=== PATIENT | female | born 1945 | race Caucasian/White ===

== ENCOUNTER 2019-01-05 14:05 | Inpatient (IN) | payer MEDICARE, OTHER ==
[~2019-01-05] VITALS: Ht 165.1 cm; Wt 54.5 kg
[2019-01-05 15:15] VITALS: BP 168/76
[2019-01-05] MEDS: IPRATRPIUM/ALBUTEROL 0.5/2.5MG 3 ML NEBU. NEB SCH ×2 (16:00→18:22)
[2019-01-05] MEDS ORDERED: ALBUTEROL SULFATE 2.5 MG/3 ML NEBU. NEB PRN (16:00)
[2019-01-05 16:19] LABS: BASE EXCESS ABG 7 mmol/L (-3-3); HCO3 ABG 34 mmol/L (21-28); PCO2 ABG 56 mmHg (35-46); PO2 ABG 72 mmHg (65-108); SAT O2 ABG 93 % (92-99)
[2019-01-05 16:22] LABS: FIO2 ABG 28% NC
[2019-01-05] MEDS ORDERED: hydrALAZINE 25 MG TABLET PO ONE (17:15)
[2019-01-05 19:10] VITALS: BP 145/73
[2019-01-05] MEDS ORDERED: hydrALAZINE 25 MG TABLET PO SCH (21:00)
[2019-01-05] MEDS: DOXYCYCLINE HYCLATE 100 MG TABLET PO SCH (21:53)
[2019-01-05] MEDS: ATORVASTATIN CALCIUM 40 MG TABLET. PO SCH (21:53)
[2019-01-05] MEDS: LACTOBACILLUS RHAMNOSUS GG 1 CAPSULE. PO SCH (21:53)
[2019-01-05] MEDS: methylPREDNISolone SOD SUCC PF 125 MG/2 ML VIAL. IV SCH (21:54)
[2019-01-05] MEDS: MONTELUKAST SODIUM 10 MG TABLET. PO SCH (21:54)
[2019-01-05] MEDS: hydrALAZINE 25 MG TABLET PO SCH (21:54)
[2019-01-05 22:59] VITALS: BP 134/68
[2019-01-06 03:05] VITALS: BP 138/79
[2019-01-06 03:58] LABS: BASO % 0 % (0-3); EOS % 0 % (0-3); HEMATOCRIT 41.1 % (36.0-47.0); HEMOGLOBIN 13.4 g/dL (12.0-15.5); LYMPH # 0.4 x10^3/uL (1.0-4.8); LYMPH % 2 % (24-48); MEAN CORPUSCULAR HEMOGLOBIN 29 pg (25-35); MEAN CORPUSCULAR HGB CONC 33 g/dL (31-37); MEAN CORPUSCULAR VOLUME 88 fL (79-100); MONO # 0.5 x10^3/uL (0.0-1.1); MONO % 3 % (0-9); NEUT # 17.3 x10^3uL (1.8-7.7); NEUT % 95 % (31-73); PLATELET COUNT 291 x10^3/uL (140-400); RED BLOOD COUNT 4.69 x10^6/uL (3.50-5.40); RED CELL DISTRIBUTION WIDTH 13.3 % (11.5-14.5); WHITE BLOOD COUNT 18.2 x10^3/uL (4.0-11.0)
[2019-01-06 06:29] LABS: ALBUMIN 3.5 g/dL (3.4-5.0); ALBUMIN/GLOBULIN RATIO 1.1 (1.0-1.7); CALCIUM 8.8 mg/dL (8.5-10.1); CREATININE 0.7 mg/dL (0.6-1.0); GFR 81.8; POTASSIUM 4.7 mmol/L (3.5-5.1); TOTAL BILIRUBIN 0.3 mg/dL (0.2-1.0); TOTAL PROTEIN 6.8 g/dL (6.4-8.2)
[2019-01-06] MEDS: methylPREDNISolone SOD SUCC PF 125 MG/2 ML VIAL. IV SCH ×3 (06:59→21:18)
[2019-01-06] MEDS: LEVOTHYROXINE 50 MCG TABLET PO SCH (06:59)
[2019-01-06 07:00] VITALS: BP 154/72
[2019-01-06 07:51] LABS: % BANDS 1 % (0-9); % LYMPHS 4 % (24-48); % MONOS 1 % (0-10); % SEGS 94 % (35-66); PLT ESTIMATE ADEQUATE (ADEQUATE)
[2019-01-06] MEDS: IPRATRPIUM/ALBUTEROL 0.5/2.5MG 3 ML NEBU. NEB SCH ×4 (07:52→20:21)
[2019-01-06] MEDS: DOXYCYCLINE HYCLATE 100 MG TABLET PO SCH ×2 (08:43→21:17)
[2019-01-06] MEDS: LACTOBACILLUS RHAMNOSUS GG 1 CAPSULE. PO SCH ×2 (08:43→21:17)
[2019-01-06] MEDS: MULTIVITAMIN I-VITE TABLET. PO SCH (08:43)
[2019-01-06] MEDS: CHOLECALCIFEROL (VITAMIN D3) 1,000 UNIT TABLET PO SCH (08:43)
[2019-01-06] MEDS: MULTIVITAMIN with MINERAL TABLET. PO SCH (08:43)
[2019-01-06] MEDS: hydroCHLOROthiazide 12.5 MG CAPSULE PO SCH (08:44)
[2019-01-06] MEDS: ASPIRIN ENTERIC COATED 81 MG TABLET.DR. PO SCH (08:44)
[2019-01-06] MEDS: LOSARTAN POTASSIUM 50 MG TABLET. PO SCH (08:44)
[2019-01-06] MEDS: hydrALAZINE 25 MG TABLET PO SCH ×3 (08:44→21:17)
--- NOTE | 2019-01-06 09:33 | HP ---
ADMIT DATE: 01/06/2019 INCOMPLETE DICTATION HISTORY OF PRESENT ILLNESS: The patient is a 73-year-old female patient, who was admitted originally to [facility] on 01/02/2019 with increasing shortness of breath that has been going on for the last 2 days prior to admission. She also has some upper abdominal pain, generalized weakness and increased shortness of breath on exertion. It is stated that the patient is so weak that she is unable to walk. She is known to have COPD and she is normally on 2 to 2.5 liters of oxygen per minute. She increased her oxygen to 3 liters a minute; however, she continued to have shortness of breath and inability to walk. She denied any chest pain. Denied any chills, rigors or fever. She was evaluated in the Emergency Room and her lab work was unremarkable. Her chest x-ray showed emphysematous changes, no focal airspace disease, normal pulmonary vasculature. No pleural effusion or pneumothorax. Cardiomediastinal silhouette is unchanged in appearance and unchanged atherosclerotic and slightly tortuous thoracic aorta. She normally follows with Dr. Dooley at [facility], but however, she expressed her desire to switch to the line and frame poler at [facility] to be followed here. In any case, the patient was started on steroids and bronchodilators and we did actually blood gases on the next day of admission. It showed that she was acidotic. Her blood gas showed a pH of 7.2, pCO2 was 81 and was also low and she was started on BiPAP machine. We did actually continue her on IV Solu-Medrol, oral doxycycline together with bronchodilators and all her other medications. Her troponin was elevated and we did consult the line and frame poler and she was diagnosed with non-ST segment elevation myocardial infarction that was felt to be demand mediated, as the patient was angina free. Her echocardiogram showed that she has normal left ventricular function and wall motion and there was a plan for her to have a nuclear stress test as an outpatient. The patient continued to desaturate with minimal exertion and we did actually even a CT angio of the chest, which showed no evidence of pulmonary embolism. Her family insisted for her to be transferred to [facility] to be evaluated by the line and frame poler. PAST MEDICAL HISTORY: Significant for chronic obstructive pulmonary disease; hypertension; hypothyroidism and chronic hypoxic respiratory failure, requiring 2 to 2.5 liters oxygen. She is known to have senile macular degeneration. PAST SURGICAL HISTORY: Significant for total abdominal hysterectomy and bilateral salpingo-oophorectomy, cholecystectomy, bilateral cataract extraction and colonoscopy. ALLERGIES: She has no known drug allergies. MEDICATIONS: She was transferred to continue on the following medications: Hydrochlorothiazide 12.5 mg once a day, multivitamin tablet once a day, losartan potassium 100 mg once a day, vitamin D 1000 international units once a day, aspirin 81 mg once a day, levothyroxine 50 mcg daily and Solu-Medrol 62.5 mg IV q. 8 hourly, hydralazine 25 mg 3 times a day, Mucinex 600 mg twice a day, Singulair 10 mg at bedtime, Lactobacillus rhamnosus 1 capsule twice a day, doxycycline 100 mg twice a day and atorvastatin calcium 40 mg at bedtime. She is also on DuoNebs 4 times a day and albuterol sulfate every 2 hours. FAMILY HISTORY: She has 3 brothers; one had committed suicide at the age of 22, the other 2 brothers are alive and healthy. She has 4 sisters. One of them had received a liver transplant for end-stage liver disease. The other two sisters are healthy. Her father at the age of 71 because of myocardial infarction. Her mother is still alive at the age of 92. SOCIAL HISTORY: She is , lives alone. She has 2 daughters and one son. She quit smoking about 2 years ago. She smoked a pack a day for 25-30 years. She has not had any alcohol for the last 2-3 years. She worked at [employer]. REVIEW OF SYSTEMS: As per history of present illness. PHYSICAL EXAMINATION: GENERAL: On examining her this morning, she was sitting comfortably at the edge of the bed, eating her breakfast, in no apparent distress. There was no pallor, jaundice, cyanosis or thyromegaly. No jugular venous distention. No lower limb edema. VITAL SIGNS: Her heart rate was 91, blood pressure was 138/79, temperature was 98.8, respiratory rate was 22 and oxygen saturation was 97% on 3 liters of oxygen by nasal cannula. HEENT: Examination of the head, eyes, ears, nose and throat showed she was normocephalic, atraumatic. NECK: Supple. HEART: Showed normal first and second heart sounds. No gallop, rub or murmur. CHEST: Showed central trachea, equally reduced expansion, reduced air entry, vesicular breath sounds. I could not really appreciate any crepitation or rhonchi. ABDOMEN: Slightly distended, soft and nontender. NEUROLOGIC: She was awake, alert and responding appropriately. All cranial nerves intact. She moved extremities without difficulty. She ambulated without assistance or assistive devices. However, she desaturates with minimal exertion as her oxygen saturation drops below 85. LABORATORY DATA: Her lab work this morning showed a white cell count of 18,200, hemoglobin 13, hematocrit 41, MCV 88 and a platelet count of 291,000. Her serum sodium was 139, potassium 4.7, chloride 100, bicarbonate 34, anion gap of 5, BUN 28, creatinine 0.7, estimated GFR was 82 mL per minute, her glucose was 140 and calcium was 8.8. Total bilirubin, AST, ALT and alkaline phosphatase were normal. Total protein was 6.8. Albumin 3.5. Her blood gases on arrival yesterday showed a pH of 7.4, pCO2 of 56, pO2 of 72, bicarbonate 34 and oxygen saturation was 93% on FiO2 of 28%. SUMMARY: In summary, this is a 73-year-old female patient who was transferred from [facility] where she was admitted with [id number] hypoxic hypercapnic respiratory failure, chronic obstructive pulmonary disease, non-ST segment elevation myocardial infarction, hypertension and hypothyroidism. The patient was already seen by the equal employment opportunity officer and there, she was diagnosed with non-ST segment elevation myocardial infarction, mostly demand paced. An echocardiogram was done, which showed that she has normal left ventricular systolic function and arrangement has been made for her to have a nuclear stress test as an outpatient. We will consult the line and frame poler as the patient continued to desaturate with minimal exertion. Meanwhile, we will continue with all current plan of management, including Solu-Medrol, bronchodilators, Singulair and Mucinex. DICTATION ENDS HERE. SARANYA BURRELL MD DR: KM/daniela JOB#: [id number] / [id number]
--- NOTE | 2019-01-06 10:38 | PDOC ---
Provider Note Provider Note [id number] acute on chronic resp fail ae copd acute bronchitis see orders MATIAS KING MD Jan 06, 2019 10:38
[2019-01-06] MEDS ORDERED: VITA1CAP11 PO (10:44)
[2019-01-06] MEDS ORDERED: LOSA1TAB25 PO (10:44)
[2019-01-06] MEDS ORDERED: MULT1TAB52 PO (10:44)
[2019-01-06] MEDS ORDERED: CHOL2000 PO (10:44)
[2019-01-06] MEDS ORDERED: LEVO50TA5 PO (10:44)
[2019-01-06] MEDS ORDERED: ENOXAPARIN 30 MG/0.3 ML SYRINGE. SQ SCH (10:45)
[2019-01-06 11:00] VITALS: BP 160/78
[2019-01-06] MEDS: PANTOPRAZOLE 40 MG TABLET.DR. PO SCH (11:13)
[2019-01-06] MEDS: BUDESONIDE 0.5 MG/2 ML NEBU. NEB SCH ×2 (11:51→20:22)
--- NOTE | 2019-01-06 11:51 | CONS ---
DATE OF CONSULTATION: 01/06/2019 REASON FOR CONSULTATION: I was asked to see this 73-year-old lady for acute on chronic respiratory failure, acute exacerbation of COPD. HISTORY OF PRESENT ILLNESS: She has history of [id number] smoking, stopped smoking in 2009. She has not felt well since October of this year. She had multiple courses of antibiotic and steroids. She did see her die cutter diamond, Dr. Hoff. She was admitted to [facility] on 03/2019, transferred to [place] per patient request. She states that she was worse 2-3 days before her admission. She had more shortness of breath and cough, was not able to cough up any sputum. She is feeling better on the day of admission at [facility], but is not the best. Her oxygen saturation drops easily, and she has shortness of breath with any activity. She has cough, but is not able to cough up sputum. She has gastroesophageal reflux symptoms. She denied chest pain. PAST MEDICAL HISTORY: COPD, chronic respiratory failure, hypothyroidism, macular degeneration, status post hysterectomy, bilateral salpingo-oophorectomy, cholecystectomy, bilateral cataract extraction. ALLERGIES: No known drug allergies. MEDICATIONS: Currently, she is on hydrochlorothiazide, Cozaar, vitamin D, aspirin, levothyroxine, Solu-Medrol 62.5 mg every 8 hours, hydralazine, Mucinex, Singulair, DuoNeb, Lipitor, doxycycline. SOCIAL HISTORY: History of 24-aqte-zqas smoking, quit smoking in 2009. FAMILY HISTORY: Hypertension. REVIEW OF SYSTEMS: As mentioned as above, other systems otherwise negative. PHYSICAL EXAMINATION: GENERAL: This is a frail lady. VITAL SIGNS: O2 saturation on 3 liters of oxygen is 95%, respiratory rate 20, heart rate 85, blood pressure 150/72, temperature 98.1. HEENT: Normocephalic, atraumatic. Pupils equal, round, reactive to light. Throat is clear. Nose is clear. NECK: There is no JVD, lymphadenopathy or thyromegaly. CARDIOVASCULAR: Regular rate and rhythm. Distant heart sounds. CHEST: Inspection is normal. LUNGS: There are diminished breath sounds, a few end expiratory wheezing with exhalation and dullness at the bases. ABDOMEN: Soft. Bowel sounds are good. There is no mass. EXTREMITIES: There is no edema. LYMPHATICS: There is no lymphadenopathy. SKIN: Warm. NEUROLOGIC: Alert and oriented. LABORATORY DATA: I reviewed the following lab data: Chest x-ray shows COPD changes, no infiltrate. The CT done at [facility] did not show pulmonary embolism or infiltrate. WBC 18.2, hemoglobin 13.4, platelet 291. Sodium 139, potassium 4.7, glucose 140, BUN 28, creatinine 0.7. ABG: PH 7.4, pCO2 of 56, pO2 of 72 on 3 liters of oxygen. IMPRESSION: 1. Acute on chronic respiratory failure, multifactorial in etiology including acute exacerbation of chronic obstructive pulmonary disease, acute bronchitis, non-ST elevation myocardial infarction and demand mediated, no pulmonary embolism versus others. 2. Acute exacerbation of chronic obstructive pulmonary disease. 3. Acute bronchitis. 4. Ex-smoker. 5. Hypertension. 6. Hypothyroidism. 7. Gastroesophageal reflux disease. PLAN AND RECOMMENDATIONS: 1. Titrate FiO2 to keep O2 saturation 92%. 2. Continue bronchodilator. 3. Add inhaled corticosteroid. 4. Continue steroid. Monitor blood sugar while she is on steroid. 5. The patient was started on Trilogy. She was not able to tolerate last night. I will start her on BiPAP 10/6, rate of 10, to use p.r.n. during day continuously at night. The importance of use discussed. We need to ask the company that provided the Trilogy to change this setting. 6. Continue antibiotic. 7. Start Lovenox for DVT prophylaxis. 8. Start Protonix for stress ulcer prophylaxis and gastroesophageal reflux disease. 9. Consult Physical Therapy. 10. Echocardiogram if not done. 11. The findings and recommendations were discussed with the patient and RN. I have answered all of the patient's questions. She understood and agreed to proceed with the plan. I have answered all of her questions. Thank you very much for allowing me to participate in care of this very nice lady. MATIAS KING M.D. : PHAM/daniela JOB#: [id number] / [id number]
--- NOTE | 2019-01-06 13:12 | NUR ---
SS following for discharge planning. SS reviewed pt chart. Pt is from home and is currently requiring oxygen. No discharge needs noted at this time. SS will continue to follow for discharge planning.
--- NOTE | 2019-01-06 14:21 | RAD ---
CHEST AP ONLY Clinical indications: INCREASED SHORTNESS OF BREATH X TODAY COMPARISON: None available. Findings: Granuloma of the right midlung zone is seen. No acute lung infiltrate or pleural effusion or pulmonary edema or lung mass or pneumothorax is seen. The heart size, pulmonary vasculature, mediastinum and both luna are unremarkable. Impression: No acute radiographic abnormality is seen. Electronically signed by: Moose Warner MD (01/06/2019 2:18 PM) [place] [id number]
[2019-01-06 15:00] VITALS: BP 158/73
[2019-01-06 19:55] VITALS: BP 142/80
[2019-01-06] MEDS: MONTELUKAST SODIUM 10 MG TABLET. PO SCH (21:17)
[2019-01-06] MEDS: ATORVASTATIN CALCIUM 40 MG TABLET. PO SCH (21:17)
[2019-01-06 22:53] VITALS: BP 155/78
[2019-01-07 02:07] VITALS: BP 143/69
[2019-01-07] MEDS: LEVOTHYROXINE 50 MCG TABLET PO SCH (06:35)
[2019-01-07] MEDS: methylPREDNISolone SOD SUCC PF 125 MG/2 ML VIAL. IV SCH (06:35)
[2019-01-07 07:00] VITALS: BP 183/97
--- NOTE | 2019-01-07 07:05 | NUR ---
Pt wore bipap from 2300 to 0400.
[2019-01-07] MEDS: IPRATRPIUM/ALBUTEROL 0.5/2.5MG 3 ML NEBU. NEB SCH ×4 (07:41→20:51)
[2019-01-07] MEDS: BUDESONIDE 0.5 MG/2 ML NEBU. NEB SCH ×2 (07:41→20:52)
[2019-01-07] MEDS: DOXYCYCLINE HYCLATE 100 MG TABLET PO SCH ×2 (08:14→20:17)
[2019-01-07] MEDS: ASPIRIN ENTERIC COATED 81 MG TABLET.DR. PO SCH (08:14)
[2019-01-07] MEDS: LACTOBACILLUS RHAMNOSUS GG 1 CAPSULE. PO SCH ×2 (08:15→20:17)
[2019-01-07] MEDS: hydroCHLOROthiazide 12.5 MG CAPSULE PO SCH (08:15)
[2019-01-07] MEDS: MULTIVITAMIN with MINERAL TABLET. PO SCH (08:15)
[2019-01-07] MEDS: PANTOPRAZOLE 40 MG TABLET.DR. PO SCH (08:16)
[2019-01-07] MEDS: LOSARTAN POTASSIUM 50 MG TABLET. PO SCH (08:17)
[2019-01-07] MEDS: hydrALAZINE 25 MG TABLET PO SCH (08:17)
[2019-01-07] MEDS: ENOXAPARIN 40 MG/0.4 ML SYRINGE. SQ SCH (08:18)
[2019-01-07] MEDS: CHOLECALCIFEROL (VITAMIN D3) 1,000 UNIT TABLET PO SCH (08:22)
--- NOTE | 2019-01-07 08:44 | PDOC ---
PULMONARY PROGRESS NOTES Subjective has sob, cough better, is weak, slept better w bipap Vitals Vital Signs Date Time Temp Pulse Resp B/P (MAP) Pulse Ox O2 Delivery O2 Flow Rate FiO2 01/07/19 08:17 96 172/79 01/07/19 07:43 90 Nasal Cannula 4.0 01/07/19 07:00 98.0 20 98.0 ROS: No Nausea, No Chest Pain General: Alert, No acute distress HEENT: Other (nc at perrl nose throat clear) Lungs: Other (deminished bs) Cardiovascular: S1, S2 Abdomen: Soft Neuro Exam: Alert Extremities: No Edema Skin: Warm Labs Laboratory Tests Test 01/05/19 15:59 01/06/19 03:45 O2 Saturation 93 % (92-99) Arterial Blood pH 7.40 (7.35-7.45) Arterial Blood pCO2 at Patient Temp 56 mmHg (35-46) Arterial Blood pO2 at Patient Temp 72 mmHg (65-108) Arterial Blood HCO3 34 mmol/L (21-28) Arterial Blood Base Excess 7 mmol/L (-3-3) FiO2 28% nc White Blood Count 18.2 x10^3/uL (4.0-11.0) Red Blood Count 4.69 x10^6/uL (3.50-5.40) Hemoglobin 13.4 g/dL (12.0-15.5) Hematocrit 41.1 % (36.0-47.0) Mean Corpuscular Volume 88 fL (79-100) Mean Corpuscular Hemoglobin 29 pg (25-35) Mean Corpuscular Hemoglobin Concent 33 g/dL (31-37) Red Cell Distribution Width 13.3 % (11.5-14.5) Platelet Count 291 x10^3/uL (140-400) Neutrophils (%) (Auto) 95 % (31-73) Lymphocytes (%) (Auto) 2 % (24-48) Monocytes (%) (Auto) 3 % (0-9) Eosinophils (%) (Auto) 0 % (0-3) Basophils (%) (Auto) 0 % (0-3) Neutrophils # (Auto) 17.3 x10^3uL (1.8-7.7) Lymphocytes # (Auto) 0.4 x10^3/uL (1.0-4.8) Monocytes # (Auto) 0.5 x10^3/uL (0.0-1.1) Eosinophils # (Auto) 0.0 x10^3/uL (0.0-0.7) Basophils # (Auto) 0.0 x10^3/uL (0.0-0.2) Segmented Neutrophils % 94 % (35-66) Band Neutrophils % 1 % (0-9) Lymphocytes % 4 % (24-48) Monocytes % 1 % (0-10) Platelet Estimate Adequate (ADEQUATE) Sodium Level 139 mmol/L (136-145) Potassium Level 4.7 mmol/L (3.5-5.1) Chloride Level 100 mmol/L (98-107) Carbon Dioxide Level 34 mmol/L (21-32) Anion Gap 5 (6-14) Blood Urea Nitrogen 28 mg/dL (7-20) Creatinine 0.7 mg/dL (0.6-1.0) Estimated GFR (Cockcroft-Gault) 81.8 BUN/Creatinine Ratio 40 (6-20) Glucose Level 140 mg/dL (70-99) Calcium Level 8.8 mg/dL (8.5-10.1) Total Bilirubin 0.3 mg/dL (0.2-1.0) Aspartate Amino Transf (AST/SGOT) 14 U/L (15-37) Alanine Aminotransferase (ALT/SGPT) 17 U/L (14-59) Alkaline Phosphatase 83 U/L (46-116) Total Protein 6.8 g/dL (6.4-8.2) Albumin 3.5 g/dL (3.4-5.0) Albumin/Globulin Ratio 1.1 (1.0-1.7) Medications Active Scripts Medications Dose Route/Sig Max Daily Dose Days Date Category Prevent Softgels (Vitamin A/Vit C/Vit E/Selenium) 1 Each Capsule 1 Cap PO DAILY 01/06/19 Reported Multivitamins (Multivitamin) 1 Each Tablet 1 Tab PO DAILY 01/06/19 Reported Losartan-Hctz 100-12.5 Mg Tab (Losartan/Hydrochlorothiazide) 1 Each Tablet 1 Tab PO DAILY 01/06/19 Reported Levothyroxine Sodium 50 Mcg Tablet 1 Tab PO DAILY 01/06/19 Reported Vitamin D (Cholecalciferol (Vitamin D3)) 2,000 Unit Capsule 1 Cap PO DAILY 01/06/19 Reported Impression . IMPRESSION: 1. Acute on chronic respiratory failure, multifactorial in etiology including acute exacerbation of chronic obstructive pulmonary disease, acute bronchitis, non-ST elevation myocardial infarction and demand mediated, no pulmonary embolism versus others. 2. Acute exacerbation of chronic obstructive pulmonary disease. 3. Acute bronchitis. 4. Ex-smoker. 5. Hypertension. 6. Hypothyroidism. 7. Gastroesophageal reflux disease. Plan . PLAN AND RECOMMENDATIONS: 1. Titrate FiO2 to keep O2 saturation 92%. 2. Continue bronchodilator. 3. inhaled corticosteroid. 4. change solumedrol to 40 q 8 hrs. Monitor blood sugar while she is on steroid. 5. Trilogy. She was not able to tolerate triology. but tolerated BiPAP 10/6, rate of 10, to use p.r.n. during day continuously at night. The importance of use discussed. her daughter took the machine home. trilogy setting need to be changed 6. Continue antibiotic. 7. Lovenox for DVT prophylaxis. 8. Protonix for stress ulcer prophylaxis and gastroesophageal reflux disease. 9. Consult Physical Therapy. 10. Echocardiogram if not done. 11. discussed w pt and MATIAS Bell MD Jan 07, 2019 08:44
[2019-01-07] MEDS: MULTIVITAMIN I-VITE TABLET. PO SCH (10:11)
[2019-01-07 11:00] VITALS: BP 165/78
[2019-01-07] MEDS ORDERED: hydroCHLOROthiazide 12.5 MG CAPSULE PO ONE (11:00)
[2019-01-07] MEDS: methylPREDNISolone SOD SUCC PF 40 MG/ML VIAL. IV SCH ×2 (13:38→22:45)
[2019-01-07 14:57] VITALS: BP 145/77
--- NOTE | 2019-01-07 16:07 | NUR ---
SS received notification that a BIPAP machine was ordered for pt at [place] and was delivered to [place]. Pt reported that her daughter took the BIPAP home. Pt reporting needing teaching on BIPAP. The BIPAP was ordered through [employer], ; fax [phone]. Mckenzie from [employer], cell [phone], reported that when pt is ready to discharge to home to call them and she would arrange a teach with pt at her home. Pt's RN notified.
[2019-01-07 19:44] VITALS: BP 152/70
[2019-01-07] MEDS: ATORVASTATIN CALCIUM 40 MG TABLET. PO SCH (20:17)
[2019-01-07] MEDS: MONTELUKAST SODIUM 10 MG TABLET. PO SCH (20:17)
[2019-01-07 23:00] VITALS: BP 123/63
[2019-01-08 03:05] VITALS: BP 145/72
[2019-01-08] MEDS: BUDESONIDE 0.5 MG/2 ML NEBU. NEB SCH ×2 (06:33→20:38)
[2019-01-08] MEDS: IPRATRPIUM/ALBUTEROL 0.5/2.5MG 3 ML NEBU. NEB SCH ×4 (06:33→20:38)
[2019-01-08] MEDS: LEVOTHYROXINE 50 MCG TABLET PO SCH (06:41)
[2019-01-08] MEDS: methylPREDNISolone SOD SUCC PF 40 MG/ML VIAL. IV SCH ×2 (06:41→21:10)
[2019-01-08 07:55] VITALS: BP 142/68
[2019-01-08] MEDS: DOXYCYCLINE HYCLATE 100 MG TABLET PO SCH ×2 (08:28→21:08)
[2019-01-08] MEDS: PANTOPRAZOLE 40 MG TABLET.DR. PO SCH (08:29)
[2019-01-08] MEDS: hydroCHLOROthiazide 25 MG TABLET PO SCH (08:29)
[2019-01-08] MEDS: CHOLECALCIFEROL (VITAMIN D3) 1,000 UNIT TABLET PO SCH (08:29)
[2019-01-08] MEDS: ASPIRIN ENTERIC COATED 81 MG TABLET.DR. PO SCH (08:29)
[2019-01-08] MEDS: LOSARTAN POTASSIUM 50 MG TABLET. PO SCH (08:29)
[2019-01-08] MEDS: MULTIVITAMIN with MINERAL TABLET. PO SCH (08:29)
[2019-01-08] MEDS: LACTOBACILLUS RHAMNOSUS GG 1 CAPSULE. PO SCH ×2 (08:30→21:09)
[2019-01-08] MEDS: MULTIVITAMIN I-VITE TABLET. PO SCH (08:30)
[2019-01-08] MEDS: ENOXAPARIN 40 MG/0.4 ML SYRINGE. SQ SCH (08:31)
--- NOTE | 2019-01-08 08:57 | PDOC ---
PULMONARY PROGRESS NOTES Subjective feels better, sob better, cough better,used bipap last night, slept better w bipap Vitals Vital Signs Date Time Temp Pulse Resp B/P (MAP) Pulse Ox O2 Delivery O2 Flow Rate FiO2 01/08/19 08:30 102 142/68 01/08/19 07:55 97.1 12 88 Nasal Cannula 3.5 97.1 ROS: No Nausea, No Chest Pain General: Alert, No acute distress HEENT: Other (nc at perrl nose throat clear) Lungs: Other (deminished bs) Cardiovascular: S1, S2 Abdomen: Soft Neuro Exam: Alert Extremities: No Edema Skin: Warm Medications Active Scripts Medications Dose Route/Sig Max Daily Dose Days Date Category Prevent Softgels (Vitamin A/Vit C/Vit E/Selenium) 1 Each Capsule 1 Cap PO DAILY 01/06/19 Reported Multivitamins (Multivitamin) 1 Each Tablet 1 Tab PO DAILY 01/06/19 Reported Losartan-Hctz 100-12.5 Mg Tab (Losartan/Hydrochlorothiazide) 1 Each Tablet 1 Tab PO DAILY 01/06/19 Reported Levothyroxine Sodium 50 Mcg Tablet 1 Tab PO DAILY 01/06/19 Reported Vitamin D (Cholecalciferol (Vitamin D3)) 2,000 Unit Capsule 1 Cap PO DAILY 01/06/19 Reported Impression . IMPRESSION: 1. Acute on chronic respiratory failure, multifactorial in etiology including acute exacerbation of chronic obstructive pulmonary disease, acute bronchitis, non-ST elevation myocardial infarction and demand mediated, no pulmonary embolism versus others. 2. Acute exacerbation of chronic obstructive pulmonary disease. 3. Acute bronchitis. 4. Ex-smoker. 5. Hypertension. 6. Hypothyroidism. 7. Gastroesophageal reflux disease. Plan . PLAN AND RECOMMENDATIONS: 1. Titrate FiO2 to keep O2 saturation 92%. 2. Continue bronchodilator. 3. inhaled corticosteroid. 4. change solumedrol to 40 q 12 hrs. Monitor blood sugar while she is on steroid. 5. Trilogy. She was not able to tolerate triology. but tolerated BiPAP 10/6, rate of 10, to use p.r.n. during day continuously at night. The importance of use discussed. her daughter took the trilogy machine home. trilogy setting needs to be changed 6. Continue antibiotic. 7. Lovenox for DVT prophylaxis. 8. Protonix for stress ulcer prophylaxis and gastroesophageal reflux disease. 9. Consult Physical Therapy. 10. Echocardiogram if not done. 11. discussed w pt MATIAS KING MD Jan 08, 2019 08:57
[2019-01-08 10:36] LABS: BASO % 0 % (0-3); EOS % 0 % (0-3); HEMOGLOBIN 14.2 g/dL (12.0-15.5); LYMPH # 0.5 x10^3/uL (1.0-4.8); LYMPH % 3 % (24-48); MEAN CORPUSCULAR HEMOGLOBIN 28 pg (25-35); MEAN CORPUSCULAR HGB CONC 32 g/dL (31-37); MEAN CORPUSCULAR VOLUME 88 fL (79-100); MONO # 0.7 x10^3/uL (0.0-1.1); MONO % 4 % (0-9); NEUT # 17.5 x10^3uL (1.8-7.7); NEUT % 94 % (31-73); PLATELET COUNT 372 x10^3/uL (140-400); RED BLOOD COUNT 5.01 x10^6/uL (3.50-5.40); RED CELL DISTRIBUTION WIDTH 13.3 % (11.5-14.5); WHITE BLOOD COUNT 18.7 x10^3/uL (4.0-11.0)
[2019-01-08 10:58] LABS: ALBUMIN 3.5 g/dL (3.4-5.0); ALBUMIN/GLOBULIN RATIO 1.1 (1.0-1.7); CALCIUM 8.7 mg/dL (8.5-10.1); CREATININE 0.8 mg/dL (0.6-1.0); GFR 70.1; POTASSIUM 3.9 mmol/L (3.5-5.1); TOTAL BILIRUBIN 0.4 mg/dL (0.2-1.0); TOTAL PROTEIN 6.7 g/dL (6.4-8.2)
[2019-01-08 11:03] VITALS: BP 135/93
--- NOTE | 2019-01-08 15:23 | PN ---
DATE: 01/08/2019 SUBJECTIVE: The patient is sitting on the edge of the bed, eating her breakfast comfortably, in no apparent distress. She continued to desaturate with minimal exertion, although she said that she had very good night sleep last night on BiPAP. She was able to walk with a walker yesterday. PHYSICAL EXAMINATION: GENERAL: When I examined her this morning, she looked well and was clearly in no apparent respiratory distress. No pallor, jaundice or cyanosis from thyromegaly. No jugular venous distention. No lower limb edema. VITAL SIGNS: Her heart rate was 102, blood pressure was 142/68, temperature was 97.1, respiratory rate 12 and oxygen saturation was 88% on 3.5 liters of oxygen. HEENT: Examination of the head, eyes, ears, nose and throat showed normocephalic, atraumatic. NECK: Supple. HEART: Showed normal first and second heart sounds. No gallop, rub or murmur. CHEST: Showed central trachea, equally reduced expansion, reduced air entry, vesicular sounds. I could not really appreciate any crepitation or rhonchi. ABDOMEN: Slightly distended, soft and nontender. NEUROLOGIC: She was awake, alert, responding appropriately. All cranial nerves intact. She moved extremities without difficulty. She ambulated with a walker. Her intake was 1240, output was 1700. LABORATORY DATA: Her lab work showed her white cell count was 18,200, hemoglobin 13, hematocrit 41, MCV 88 and platelet count of 291,000. Her chemistry showed a serum sodium 139, potassium 4.7, chloride 100, bicarbonate 34, anion gap of 5, BUN 28, creatinine 0.7, estimated GFR was 82 mL per minute and her glucose was 140. ASSESSMENT: 1. Itwxr-ki-hbnefxo hypoxic hypercapnic respiratory failure. 2. Chronic obstructive pulmonary disease. 3. Non-ST segment elevation myocardial infarction. 4. Hypertension. 5. Hypothyroidism. PLAN: The plan is to continue with the current plan of management. Her blood pressure is much better controlled, now that we have increased her hydralazine to 50 mg 3 times a day, hydrochlorothiazide to 25 mg once a day. She is already on losartan 100 mg once a day. Her steroids were cut down to 40 mg IV q. 8 hourly. I will repeat her labs tomorrow and hopefully discharge her on Thursday to swing bed to continue the process of rehabilitation. SARANYA BURRELL MD DR: KM/daniela JOB#: [id number] / [id number]
[2019-01-08 15:56] VITALS: BP 102/58
[2019-01-08 19:50] VITALS: BP 118/63
[2019-01-08] MEDS: MONTELUKAST SODIUM 10 MG TABLET. PO SCH (21:08)
[2019-01-08] MEDS: ATORVASTATIN CALCIUM 40 MG TABLET. PO SCH (21:09)
[2019-01-08 23:00] VITALS: BP 125/57
[2019-01-09 03:00] VITALS: BP 135/59
[2019-01-09 03:48] LABS: HEMATOCRIT 41.6 % (36.0-47.0); HEMOGLOBIN 13.2 g/dL (12.0-15.5); RED BLOOD COUNT 4.74 x10^6/uL (3.50-5.40); RED CELL DISTRIBUTION WIDTH 13.1 % (11.5-14.5); WHITE BLOOD COUNT 18.4 x10^3/uL (4.0-11.0)
[2019-01-09 04:03] LABS: CALCIUM 8.3 mg/dL (8.5-10.1); CREATININE 0.6 mg/dL (0.6-1.0); GFR 97.7; POTASSIUM 4.3 mmol/L (3.5-5.1)
[2019-01-09] MEDS: LEVOTHYROXINE 50 MCG TABLET PO SCH (06:09)
[2019-01-09 07:56] VITALS: BP 115/63
[2019-01-09] MEDS: BUDESONIDE 0.5 MG/2 ML NEBU. NEB SCH ×2 (08:00→20:04)
[2019-01-09] MEDS: ASPIRIN ENTERIC COATED 81 MG TABLET.DR. PO SCH (08:22)
[2019-01-09] MEDS: MULTIVITAMIN with MINERAL TABLET. PO SCH (08:22)
[2019-01-09] MEDS: DOXYCYCLINE HYCLATE 100 MG TABLET PO SCH ×2 (08:22→20:27)
[2019-01-09] MEDS: PANTOPRAZOLE 40 MG TABLET.DR. PO SCH (08:22)
[2019-01-09] MEDS: LACTOBACILLUS RHAMNOSUS GG 1 CAPSULE. PO SCH ×2 (08:22→20:27)
[2019-01-09] MEDS: MULTIVITAMIN I-VITE TABLET. PO SCH (08:22)
[2019-01-09] MEDS: CHOLECALCIFEROL (VITAMIN D3) 1,000 UNIT TABLET PO SCH (08:23)
[2019-01-09] MEDS: ENOXAPARIN 40 MG/0.4 ML SYRINGE. SQ SCH (08:23)
[2019-01-09] MEDS: LOSARTAN POTASSIUM 50 MG TABLET. PO SCH (08:23)
[2019-01-09] MEDS: hydroCHLOROthiazide 25 MG TABLET PO SCH (08:23)
[2019-01-09] MEDS: methylPREDNISolone SOD SUCC PF 40 MG/ML VIAL. IV SCH (08:23)
[2019-01-09] MEDS: IPRATRPIUM/ALBUTEROL 0.5/2.5MG 3 ML NEBU. NEB SCH ×4 (08:34→20:04)
--- NOTE | 2019-01-09 09:02 | PDOC ---
PULMONARY PROGRESS NOTES Subjective feels better, sob, cough better,used bipap last night, tolerated well, sleeps better w bipap Vitals Vital Signs Date Time Temp Pulse Resp B/P (MAP) Pulse Ox O2 Delivery O2 Flow Rate FiO2 01/09/19 08:36 96 Nasal Cannula 3.5 01/09/19 08:23 89 115/63 01/09/19 07:56 97.4 18 97.4 ROS: No Nausea, No Chest Pain General: Alert, No acute distress HEENT: Other (nc at perrl nose throat clear) Lungs: Other (deminished bs) Cardiovascular: S1, S2 Abdomen: Soft, Non-tender Neuro Exam: Alert, Oriented Extremities: No Edema Skin: Warm Labs Laboratory Tests Test 01/08/19 10:15 01/09/19 03:15 White Blood Count 18.7 x10^3/uL (4.0-11.0) 18.4 x10^3/uL (4.0-11.0) Red Blood Count 5.01 x10^6/uL (3.50-5.40) 4.74 x10^6/uL (3.50-5.40) Hemoglobin 14.2 g/dL (12.0-15.5) 13.2 g/dL (12.0-15.5) Hematocrit 44.0 % (36.0-47.0) 41.6 % (36.0-47.0) Mean Corpuscular Volume 88 fL (79-100) 88 fL (79-100) Mean Corpuscular Hemoglobin 28 pg (25-35) 28 pg (25-35) Mean Corpuscular Hemoglobin Concent 32 g/dL (31-37) 32 g/dL (31-37) Red Cell Distribution Width 13.3 % (11.5-14.5) 13.1 % (11.5-14.5) Platelet Count 372 x10^3/uL (140-400) 305 x10^3/uL (140-400) Neutrophils (%) (Auto) 94 % (31-73) Lymphocytes (%) (Auto) 3 % (24-48) Monocytes (%) (Auto) 4 % (0-9) Eosinophils (%) (Auto) 0 % (0-3) Basophils (%) (Auto) 0 % (0-3) Neutrophils # (Auto) 17.5 x10^3uL (1.8-7.7) Lymphocytes # (Auto) 0.5 x10^3/uL (1.0-4.8) Monocytes # (Auto) 0.7 x10^3/uL (0.0-1.1) Eosinophils # (Auto) 0.0 x10^3/uL (0.0-0.7) Basophils # (Auto) 0.0 x10^3/uL (0.0-0.2) Sodium Level 140 mmol/L (136-145) 134 mmol/L (136-145) Potassium Level 3.9 mmol/L (3.5-5.1) 4.3 mmol/L (3.5-5.1) Chloride Level 98 mmol/L (98-107) 98 mmol/L (98-107) Carbon Dioxide Level 34 mmol/L (21-32) 32 mmol/L (21-32) Anion Gap 8 (6-14) 4 (6-14) Blood Urea Nitrogen 43 mg/dL (7-20) 42 mg/dL (7-20) Creatinine 0.8 mg/dL (0.6-1.0) 0.6 mg/dL (0.6-1.0) Estimated GFR (Cockcroft-Gault) 70.1 97.7 BUN/Creatinine Ratio 54 (6-20) Glucose Level 122 mg/dL (70-99) 137 mg/dL (70-99) Calcium Level 8.7 mg/dL (8.5-10.1) 8.3 mg/dL (8.5-10.1) Total Bilirubin 0.4 mg/dL (0.2-1.0) Aspartate Amino Transf (AST/SGOT) 30 U/L (15-37) Alanine Aminotransferase (ALT/SGPT) 25 U/L (14-59) Alkaline Phosphatase 77 U/L (46-116) Total Protein 6.7 g/dL (6.4-8.2) Albumin 3.5 g/dL (3.4-5.0) Albumin/Globulin Ratio 1.1 (1.0-1.7) Laboratory Tests Test 01/08/19 10:15 01/09/19 03:15 White Blood Count 18.7 x10^3/uL (4.0-11.0) 18.4 x10^3/uL (4.0-11.0) Red Blood Count 5.01 x10^6/uL (3.50-5.40) 4.74 x10^6/uL (3.50-5.40) Hemoglobin 14.2 g/dL (12.0-15.5) 13.2 g/dL (12.0-15.5) Hematocrit 44.0 % (36.0-47.0) 41.6 % (36.0-47.0) Mean Corpuscular Volume 88 fL (79-100) 88 fL (79-100) Mean Corpuscular Hemoglobin 28 pg (25-35) 28 pg (25-35) Mean Corpuscular Hemoglobin Concent 32 g/dL (31-37) 32 g/dL (31-37) Red Cell Distribution Width 13.3 % (11.5-14.5) 13.1 % (11.5-14.5) Platelet Count 372 x10^3/uL (140-400) 305 x10^3/uL (140-400) Neutrophils (%) (Auto) 94 % (31-73) Lymphocytes (%) (Auto) 3 % (24-48) Monocytes (%) (Auto) 4 % (0-9) Eosinophils (%) (Auto) 0 % (0-3) Basophils (%) (Auto) 0 % (0-3) Neutrophils # (Auto) 17.5 x10^3uL (1.8-7.7) Lymphocytes # (Auto) 0.5 x10^3/uL (1.0-4.8) Monocytes # (Auto) 0.7 x10^3/uL (0.0-1.1) Eosinophils # (Auto) 0.0 x10^3/uL (0.0-0.7) Basophils # (Auto) 0.0 x10^3/uL (0.0-0.2) Sodium Level 140 mmol/L (136-145) 134 mmol/L (136-145) Potassium Level 3.9 mmol/L (3.5-5.1) 4.3 mmol/L (3.5-5.1) Chloride Level 98 mmol/L (98-107) 98 mmol/L (98-107) Carbon Dioxide Level 34 mmol/L (21-32) 32 mmol/L (21-32) Anion Gap 8 (6-14) 4 (6-14) Blood Urea Nitrogen 43 mg/dL (7-20) 42 mg/dL (7-20) Creatinine 0.8 mg/dL (0.6-1.0) 0.6 mg/dL (0.6-1.0) Estimated GFR (Cockcroft-Gault) 70.1 97.7 BUN/Creatinine Ratio 54 (6-20) Glucose Level 122 mg/dL (70-99) 137 mg/dL (70-99) Calcium Level 8.7 mg/dL (8.5-10.1) 8.3 mg/dL (8.5-10.1) Total Bilirubin 0.4 mg/dL (0.2-1.0) Aspartate Amino Transf (AST/SGOT) 30 U/L (15-37) Alanine Aminotransferase (ALT/SGPT) 25 U/L (14-59) Alkaline Phosphatase 77 U/L (46-116) Total Protein 6.7 g/dL (6.4-8.2) Albumin 3.5 g/dL (3.4-5.0) Albumin/Globulin Ratio 1.1 (1.0-1.7) Medications Active Scripts Medications Dose Route/Sig Max Daily Dose Days Date Category Prevent Softgels (Vitamin A/Vit C/Vit E/Selenium) 1 Each Capsule 1 Cap PO DAILY 01/06/19 Reported Multivitamins (Multivitamin) 1 Each Tablet 1 Tab PO DAILY 01/06/19 Reported Losartan-Hctz 100-12.5 Mg Tab (Losartan/Hydrochlorothiazide) 1 Each Tablet 1 Tab PO DAILY 01/06/19 Reported Levothyroxine Sodium 50 Mcg Tablet 1 Tab PO DAILY 01/06/19 Reported Vitamin D (Cholecalciferol (Vitamin D3)) 2,000 Unit Capsule 1 Cap PO DAILY 01/06/19 Reported Impression . IMPRESSION: 1. Acute on chronic respiratory failure, multifactorial in etiology including acute exacerbation of chronic obstructive pulmonary disease, acute bronchitis, non-ST elevation myocardial infarction and demand mediated, no pulmonary embolism versus others. 2. Acute exacerbation of chronic obstructive pulmonary disease. 3. Acute bronchitis. 4. Ex-smoker. 5. Hypertension. 6. Hypothyroidism. 7. Gastroesophageal reflux disease. Plan . PLAN AND RECOMMENDATIONS: 1. Titrate FiO2 to keep O2 saturation 92%. 2. Continue bronchodilator. 3. inhaled corticosteroid. 4. change solumedrol to prednisone 40 mg daily w taper by 10 mg q 3d. Monitor blood sugar while she is on steroid. 5. Trilogy. She was not able to tolerate triology. but tolerated BiPAP 10/6, rate of 10, to use p.r.n. during day continuously at night. The importance of use discussed. her daughter took the trilogy machine home. trilogy setting needs to be changed 6. Continue antibiotic. 7. Lovenox for DVT prophylaxis. 8. Protonix for stress ulcer prophylaxis and gastroesophageal reflux disease. 9. Consult Physical Therapy. 10. Echocardiogram if not done, defer to primary. 11. discussed w MATIAS Hogue MD Jan 09, 2019 09:02
[2019-01-09 10:48] VITALS: BP 130/60
[2019-01-09 14:17] VITALS: BP 116/58
[2019-01-09 19:10] VITALS: BP 108/56
[2019-01-09] MEDS: ATORVASTATIN CALCIUM 40 MG TABLET. PO SCH (20:27)
[2019-01-09] MEDS: MONTELUKAST SODIUM 10 MG TABLET. PO SCH (20:27)
[2019-01-09 23:00] VITALS: BP 94/55
--- NOTE | 2019-01-10 01:24 | PN ---
DATE: 01/09/2019 SUBJECTIVE: The patient is sitting at the edge of the bed, eating her breakfast comfortably, in no apparent respiratory distress. She stated that she has extremely well keep BiPAP till 6:00 in the morning. Nursing staff did not voice any concerns that she had an uneventful night. PHYSICAL EXAMINATION: GENERAL: When I examined her, she looked well and was clearly in no apparent respiratory distress. No pallor, jaundice, cyanosis, or thyromegaly. No jugular venous distension. No limb edema. VITAL SIGNS: Her heart rate was 89, blood pressure 115/63, temperature was 97.4, respiratory rate was 18 and oxygen saturation was 96%. HEAD, EYES, EARS, NOSE AND THROAT: Showed normocephalic, atraumatic. NECK: Supple. HEART: Showed normal first and second sounds. No gallop, rub or murmur. CHEST: Shows central trachea, equally reduced expansion, reduced air entry, vesicular sounds. I could not appreciate any crepitation or rhonchi. ABDOMEN: Slightly distended, soft, nontender. NEUROLOGIC: She is awake, alert, responding appropriately with cranial nerves intact. She moves extremities without difficulty. Her intake over the last 24 hours was 400, output was 400. LABORATORY DATA: This morning showed serum sodium 134, potassium 4.3, chloride 98, bicarbonate 32, anion gap of 4, BUN 42, creatinine was 0.6, estimated GFR was 98 mL per minute. Her glucose 137, calcium was 8.3. White cell count continued to be high at 18,400, hemoglobin 13, hematocrit 42, MCV 88 and platelet count 305,000. ASSESSMENT: 1. Acute on chronic hypoxic hypercapnic respiratory failure. 2. Chronic obstructive pulmonary disease exacerbation. 3. Non-ST segment elevation myocardial infarction. 4. Hypertension. 5. Hypothyroidism. PLAN: To continue with current plan of management. We will switch her tomorrow to oral steroids and will discharge her back to swing bed to [facility] tomorrow. SARANYA BURRELL MD DR: KM/daniela JOB#: [id number] / [id number]
[2019-01-10 02:55] VITALS: BP 95/53
[2019-01-10] MEDS: LEVOTHYROXINE 50 MCG TABLET PO SCH (06:57)
[2019-01-10] MEDS: IPRATRPIUM/ALBUTEROL 0.5/2.5MG 3 ML NEBU. NEB SCH ×3 (07:16→15:18)
[2019-01-10] MEDS: BUDESONIDE 0.5 MG/2 ML NEBU. NEB SCH (07:16)
[2019-01-10 07:33] VITALS: BP 125/60
[2019-01-10] MEDS ORDERED: predniSONE 20 MG TABLET PO SCH (09:00)
[2019-01-10] MEDS: DOXYCYCLINE HYCLATE 100 MG TABLET PO SCH (09:37)
[2019-01-10] MEDS: ENOXAPARIN 40 MG/0.4 ML SYRINGE. SQ SCH (09:37)
[2019-01-10] MEDS: LACTOBACILLUS RHAMNOSUS GG 1 CAPSULE. PO SCH (09:37)
[2019-01-10] MEDS: CHOLECALCIFEROL (VITAMIN D3) 1,000 UNIT TABLET PO SCH (09:38)
[2019-01-10] MEDS: ASPIRIN ENTERIC COATED 81 MG TABLET.DR. PO SCH (09:38)
[2019-01-10] MEDS: LOSARTAN POTASSIUM 50 MG TABLET. PO SCH (09:39)
[2019-01-10] MEDS: MULTIVITAMIN I-VITE TABLET. PO SCH (09:39)
[2019-01-10] MEDS: PANTOPRAZOLE 40 MG TABLET.DR. PO SCH (09:39)
[2019-01-10] MEDS: MULTIVITAMIN with MINERAL TABLET. PO SCH (09:39)
[2019-01-10] MEDS: hydroCHLOROthiazide 25 MG TABLET PO SCH (09:41)
[2019-01-10 10:50] VITALS: BP 134/69
--- NOTE | 2019-01-10 12:42 | PDOC ---
PULMONARY PROGRESS NOTES Subjective feels better, sob, cough better,used bipap last night, tolerated well, sleeps better w bipap Vitals Vital Signs Date Time Temp Pulse Resp B/P (MAP) Pulse Ox O2 Delivery O2 Flow Rate FiO2 01/10/19 11:09 95 Nasal Cannula 3.0 01/10/19 10:50 97.6 106 20 134/69 (90) 97.6 ROS: No Nausea, No Chest Pain General: Alert, No acute distress HEENT: Other (nc at perrl nose throat clear) Lungs: Other (deminished bs) Cardiovascular: S1, S2 Abdomen: Soft, Non-tender Neuro Exam: Alert, Oriented Extremities: No Edema Skin: Warm Labs Laboratory Tests Test 01/09/19 03:15 White Blood Count 18.4 x10^3/uL (4.0-11.0) Red Blood Count 4.74 x10^6/uL (3.50-5.40) Hemoglobin 13.2 g/dL (12.0-15.5) Hematocrit 41.6 % (36.0-47.0) Mean Corpuscular Volume 88 fL (79-100) Mean Corpuscular Hemoglobin 28 pg (25-35) Mean Corpuscular Hemoglobin Concent 32 g/dL (31-37) Red Cell Distribution Width 13.1 % (11.5-14.5) Platelet Count 305 x10^3/uL (140-400) Sodium Level 134 mmol/L (136-145) Potassium Level 4.3 mmol/L (3.5-5.1) Chloride Level 98 mmol/L (98-107) Carbon Dioxide Level 32 mmol/L (21-32) Anion Gap 4 (6-14) Blood Urea Nitrogen 42 mg/dL (7-20) Creatinine 0.6 mg/dL (0.6-1.0) Estimated GFR (Cockcroft-Gault) 97.7 Glucose Level 137 mg/dL (70-99) Calcium Level 8.3 mg/dL (8.5-10.1) Medications Active Scripts Medications Dose Route/Sig Max Daily Dose Days Date Category Prevent Softgels (Vitamin A/Vit C/Vit E/Selenium) 1 Each Capsule 1 Cap PO DAILY 01/06/19 Reported Multivitamins (Multivitamin) 1 Each Tablet 1 Tab PO DAILY 01/06/19 Reported Losartan-Hctz 100-12.5 Mg Tab (Losartan/Hydrochlorothiazide) 1 Each Tablet 1 Tab PO DAILY 01/06/19 Reported Levothyroxine Sodium 50 Mcg Tablet 1 Tab PO DAILY 01/06/19 Reported Vitamin D (Cholecalciferol (Vitamin D3)) 2,000 Unit Capsule 1 Cap PO DAILY 01/06/19 Reported Impression . IMPRESSION: 1. Acute on chronic respiratory failure, multifactorial in etiology including acute exacerbation of chronic obstructive pulmonary disease, acute bronchitis, non-ST elevation myocardial infarction and demand mediated, no pulmonary embolism versus 2. Acute exacerbation of chronic obstructive pulmonary disease. 3. Acute bronchitis. 4. Ex-smoker. 5. Hypertension. 6. Hypothyroidism. 7. Gastroesophageal reflux disease. Plan . PLAN AND RECOMMENDATIONS: 1. Titrate FiO2 to keep O2 saturation 92%. 2. Continue bronchodilator. 3. inhaled corticosteroid. 4. steroid taper. Monitor blood sugar while she is on steroid. 5. prn BiPAP 6. Continue antibiotic. 7. Lovenox for DVT prophylaxis. 8. Protonix for stress ulcer prophylaxis and gastroesophageal reflux disease. ok with dc to [facility] Cruz MD Jan 10, 2019 12:42
[2019-01-10] MEDS ORDERED: BUDE0.5A3 NEB (12:52)
[2019-01-10] MEDS ORDERED: HYDR-2869 PO (12:52)
[2019-01-10] MEDS ORDERED: MONT10TA9 PO (12:52)
[2019-01-10] MEDS ORDERED: PRED-220 PO (12:52)
[2019-01-10] MEDS ORDERED: PANT20TA2 PO (12:52)
[2019-01-10] MEDS ORDERED: GUAI600T47 PO (12:52)
[2019-01-10] MEDS ORDERED: ATOR40TA59 PO (12:55)
[2019-01-10] MEDS ORDERED: IPRA3AMP29 NEB (12:55)
[2019-01-10] MEDS ORDERED: ASPI-612 PO (12:55)
[2019-01-10] MEDS ORDERED: ALBU2.5V14 NEB (12:55)
--- NOTE | 2019-01-10 12:56 | SNU/HH DC ---
DISCHARGE ORDERS DISCHARGE INFORMATION: CONDITION ON DISCHARGE: Stable CODE STATUS: Code Status: Full RESIDENTIAL: SNF STAY <30 DAYS: Yes POST DISCHARGE ORDERS: ACTIVITY ORDERS: Resume previous activity DIET AFTER DISCHARGE: Regular TREATMENT/EQUIPMENT ORDERS: RESPIRATORY EQUIPMENT NEEDED: Oxygen, Nebulizer, BiPAP Physical Therapy For: Evalulation/Treatment Occupational Therapy For: Evaluation/Treatment DISCHARGE MEDICATIONS: Home Meds Active Scripts Albuterol Sulfate (ALBUTEROL SULFATE CONC NEB SOLN) 2.5 Mg/0.5 Ml Vial.neb, 1 VIAL NEB Q6HRS for copd for 30 Days, #120 VIAL 5 Refills Prov:SARANYA BURRELL MD 01/10/19 Ipratropium/Albuterol Sulfate (DUONEB 0.5-3(2.5) MG/3 ML) 3 Ml Ampul.neb, 3 ML NEB QID for copd for 30 Days, #120 EACH Prov:SARANYA BURRELL MD 01/10/19 Atorvastatin Calcium (ATORVASTATIN CALCIUM) 40 Mg Tablet, 1 TAB PO DAILY for hld for 30 Days, #30 TAB 5 Refills Prov:SARANYA BURRELL MD 01/10/19 Aspirin (ASPIRIN EC) 81 Mg Tablet.dr, 1 TAB PO DAILY for cad for 30 Days, #30 TAB 3 Refills Prov:SARANYA BURRELL MD 01/10/19 Montelukast Sodium (MONTELUKAST SODIUM TABLET) 10 Mg Tablet, 1 TAB PO DAILY for copd for 10 Days, #10 TAB 5 Refills Prov:SARANYA BURRELL MD 01/10/19 Guaifenesin (MUCINEX) 600 Mg Tablet.er, 1 TAB PO BID for copd for 10 Days, #20 TAB Prov:SARANYA BURRELL MD 01/10/19 Pantoprazole Sodium (PROTONIX) 20 Mg Tablet.dr, 40 MG PO DAILY for gerd for 10 Days, #20 TAB Prov:SARANYA BURRELL MD 01/10/19 Budesonide (PULMICORT) 0.5 Mg/2 Ml Ampul.neb, 1 VIAL NEB BID for copd eXACERBATION for 10 Days, #60 VIAL 3 Refills Prov:SARANYA BURRELL MD 01/10/19 Prednisone (PREDNISONE ) 10 Mg Tablet, 40 MG PO DAILY for copd for 10 Days, # 40 TAB 0 Refills Prov:SARANYA BURRELL MD 01/10/19 Hydralazine Hcl (HYDRALAZINE HCL) 50 Mg Tablet, 1 TAB PO TID for htn, #90 TAB 5 Refills Prov:SARANYA BURRELL MD 01/10/19 Reported Medications Vitamin A/Vit C/Vit E/Selenium (PREVENT SOFTGELS) 1 Each Capsule, 1 CAP PO DAILY for maintenance, CAP 01/06/19 Multivitamin (MULTIVITAMINS) 1 Each Tablet, 1 TAB PO DAILY for maintenance, #90 TAB 3 Refills 01/06/19 Losartan/Hydrochlorothiazide (LOSARTAN-HCTZ 100-12.5 MG TAB) 1 Each Tablet, 1 TAB PO DAILY for bp, #30 TAB 5 Refills 01/06/19 Levothyroxine Sodium (LEVOTHYROXINE SODIUM) 50 Mcg Tablet, 1 TAB PO DAILY for low tsh, #30 TAB 5 Refills 01/06/19 Cholecalciferol (Vitamin D3) (VITAMIN D) 2,000 Unit Capsule, 1 CAP PO DAILY for maintenance, #30 CAP 3 Refills 01/06/19 SARANYA BURRELL MD Jan 10, 2019 12:56
--- NOTE | 2019-01-10 13:18 | NUR ---
SS following for discharge planning. PT/OT recommended assisted unit. SS met with pt to discuss assisted unit and discharge planning. Pt agreeable with assisted unit and requested referral be sent to [facility]. SS phoned and faxed referral to [facility], [phone]; fax [phone]. Pt accepted at [facility]. Discharge orders received. SS phoned and faxed discharge orders to [facility]. Pt will discharge today and go to [facility] between 1600 and 1630 via [employer] transportation, . Pt and pt's RN notified.
[2019-01-10 14:49] VITALS: BP 126/58
--- NOTE | 2019-01-11 00:51 | DS ---
DATE OF DISCHARGE: 01/10/2019 HOSPITAL COURSE: The patient was a 73-year-old female patient who was originally transferred from [facility] with [id number] hypoxic hypercapnic respiratory failure. She was evaluated by the rn charge and she was continued on her BiPAP machine and did generally very well, has been sleeping extremely well overnight on BiPAP machine and has been working with physical therapy, although she continued to be extremely weak and deconditioned and therefore, a decision was made to discharge her to swing bed at [facility] to continue the process of rehabilitation. PHYSICAL EXAMINATION: GENERAL: When I saw her this morning, she looked well and was clearly in no apparent respiratory distress. No pallor, jaundice, cyanosis, no lymphadenopathy, or thyromegaly. No jugular venous distention. No lower limb edema. VITAL SIGNS: Her heart rate was 83, blood pressure 125/60, her temperature was 98, respiratory rate was 20, and oxygen saturation was 95% on 3 liters of oxygen. The rest of clinical exam is stable. LABORATORY DATA: Her lab work this morning showed a white cell count of 18,400, hemoglobin 13, hematocrit 42, MCV 88 and platelet count 305,000. Her chemistry showed a serum sodium 134, potassium 4.3, chloride 98, bicarbonate 32, anion gap of 4, BUN 42, creatinine 0.6, estimated GFR was 98 mL per minute. Her glucose 137, calcium was 8.3. Her repeat blood gas showed a pH of 7.4, pCO2 of 56, pO2 of 72, bicarbonate 34, anion gap of 7, and oxygen saturation was 93% on FiO2 of 28%. DISCHARGE MEDICATIONS: She was discharged to swing bed at [facility] to continue on albuterol sulfate 2.5 mg nebulizer every 2 hours, aspirin 81 mg once a day, Pulmicort 0.5 mg 3 mL by nebulizer twice a day, Mucinex 600 mg twice a day, hydralazine 50 mg 3 times a day, DuoNeb 0.5-2.5 mg 3 mL by nebulizer 4 times a day, Singulair 10 mg once a day, Protonix 40 mg once a day, prednisone 40 mg tapering fashion, vitamin D3 1000 International Units once a day, levothyroxine sodium 50 mcg once a day, losartan/hydrochlorothiazide 100/12.5 mg once a day, multivitamin 1 tablet once a day. FINAL DISCHARGE DIAGNOSES: 1. Acute on chronic hypoxic hypercapnic respiratory failure. 2. Chronic obstructive pulmonary disease exacerbation. 3. Non-ST segment elevation myocardial infarction. 4. Hypertension. 5. Hypothyroidism. SARANYA BURRELL MD DR: KM/daniela JOB#: [id number] / [id number]
== END 2019-01-10 16:03 | DRG 189 ==
LOC: 2 NORTH 15:31
PROVIDERS: ADMIT Internal Medicine; ATTEND Internal Medicine
PROC: 5A09357 Assistance with Respiratory Ventilation, Less than 24 Consecutive Hours, Continuous Positive Airway Pressure (ICD-10-PCS; principal; 2019-01-07)
PROC: 5A09357 Assistance with Respiratory Ventilation, Less than 24 Consecutive Hours, Continuous Positive Airway Pressure (ICD-10-PCS; 2019-01-08)
PROC: 5A09357 Assistance with Respiratory Ventilation, Less than 24 Consecutive Hours, Continuous Positive Airway Pressure (ICD-10-PCS; 2019-01-09)
DX: J96.21 Acute and chronic respiratory failure with hypoxia (principal); I21.A1 Myocardial infarction type 2; J44.1 Chronic obstructive pulmonary disease with (acute) exacerbation; E87.2 Acidosis; J44.0 Chronic obstructive pulmonary disease with (acute) lower respiratory infection; J96.22 Acute and chronic respiratory failure with hypercapnia; J20.9 Acute bronchitis, unspecified; E03.9 Hypothyroidism, unspecified; H35.30 Unspecified macular degeneration; I10 Essential (primary) hypertension; K21.9 Gastro-esophageal reflux disease without esophagitis; Z82.49 Family history of ischemic heart disease and other diseases of the circulatory system; Z60.2 Problems related to living alone; Z90.710 Acquired absence of both cervix and uterus; Z87.891 Personal history of nicotine dependence; Z98.41 Cataract extraction status, right eye; Z98.42 Cataract extraction status, left eye; Z90.722 Acquired absence of ovaries, bilateral; Z90.49 Acquired absence of other specified parts of digestive tract
CPT/HCPCS: 36415; 36600; 71045; 80048; 80053; 82805; 85007; 85025; 85027; 94640; 94660; 94760; J1650; J2920; J2930; J7512; J7613; J7620; J7626; 97110; 97116; 97530